=== PATIENT | female | born 1940 | race Caucasian/White ===

== ENCOUNTER 2020-01-03 03:25 | Observation (INO) ==
[2020-01-03] MEDS ORDERED: Naloxone 0.4 MG/ML INJ IVP PRN ×2 (05:32→20:19)
[2020-01-03] MEDS ORDERED: Ondansetron 4 MG/2 ML VIAL IVP PRN ×2 (05:32→20:19)
[2020-01-03] MEDS ORDERED: *HR* Metoprolol 5 MG/5 ML VIAL IVP PRN (05:35)
[2020-01-03] MEDS: 0.9 % Sodium Chloride 1,000 ML IVC SCH ×2 (05:59→14:27)
[2020-01-03 06:27] LABS: Basophils # 0.1 K/mcL (0.0-0.2); Basophils % 0.5 %; Hematocrit 43.6 % (35.3-44.9); Hemoglobin 13.5 g/dL (11.5-15.4); Immature Granulocytes % 0.6 % (0-4); Lymphocytes % 7.5 %; Mean Corpuscular Hemoglobin 28.8 pg (28.0-33.3); Mean Platelet Volume 10.4 fL (9.4-12.4); Monocytes # 0.6 K/mcL (0.0-1.3); Monocytes % 4.3 %; Neutrophils # 11.9 K/mcL (1.6-8.9); Platelet Count 324 K/mcL (140-400); Red Blood Count 4.69 M/mcL (3.82-4.97); Segmented Neutrophils % 87.1 %; White Blood Count 13.7 K/mcL (4.3-11.1)
[2020-01-03 06:39] LABS: INR 2.7; Prothrombin Time 30.7 Seconds (9.4-12.1)
[2020-01-03 06:54] LABS: BUN/Creatinine Ratio 12 (6-26); Blood Urea Nitrogen 12 mg/dL (8-23); Calcium 8.9 mg/dL (8.6-10.3); Carbon Dioxide 23 mEq/L (23-29); Chloride 105 mEq/L (98-107); Glucose 188 mg/dL (70-105); Osmolality,Calculated 291 (280-300); Potassium 4.1 mEq/L (3.5-5.1); Sodium 138 mEq/L (136-145); eGFR For African Americans > 60 (> 60); eGFR For Non-African Americans 53 (> 60)
[2020-01-03] MEDS ORDERED: Psyllium 1 PACKET POWD.PACK PO SCH (09:00)
[2020-01-03 09:16] LABS: Bilirubin,Urine Negative (Negative); Blood,Urine Large (Negative); Clarity,Urine Clear (Clear); Color,Urine Orange (Yellow); Glucose,Urine (UA) 100 mg/dL (Normal); Ketones,Urine Trace mg/dL (Negative); Leukocyte Esterase,Urine Trace (Negative); Nitrite,Urine Positive (Negative); PH,Urine 6.5 pH Units (5.0-8.0); Protein,Urine 30 mg/dL (Neg-Trace); Specific Gravity,Urine > 1.030 (1.010-1.025); Urobilinogen,Urine Normal (Normal)
[2020-01-03 09:17] LABS: Hyaline Casts,Urine None Seen per lpf (None-Few); Squamous Epithelial Cell,Urine Many per lpf (None-Few)
[2020-01-03 09:27] LABS: RBC,Urine 15-30 per hpf (0-3); Renal Epithelial Cells,Urine Few per hpf (None-Few); Transitional Epi Cells,Urine Few per hpf (None-Few)
[2020-01-03 09:28] LABS: Bacteria,Urine Few per hpf (None-Few)
[2020-01-03] MEDS ORDERED: cefTRIAXone 1,000 MG in Water for inj. (sterile) 10 ML IVP SCH (16:00)
[2020-01-03] MEDS ORDERED: *HR* Warfarin 5 MG TABLET PO ONE (16:44)
[2020-01-03] MEDS ORDERED: *HR* Meperidine 25 MG/ML SYRINGE IVP PRN (17:58)
[2020-01-03] MEDS ORDERED: *HR* FentaNYL (PF) 100 MCG/2 ML VIAL IVP PRN (17:58)
[2020-01-03] MEDS ORDERED: Ondansetron 4 MG/2 ML VIAL IVP ONE (17:58)
[2020-01-03] MEDS ORDERED: *HR* OxyCODONE Immed Rel 5 MG TABLET PO PRN (17:58)
[2020-01-03] MEDS ORDERED: Warfarin perPT PO PRN ×2 (18:00→20:19)
[2020-01-03] MEDS ORDERED: Lidocaine -MPF 2% 2 ML VIAL ONE (18:06)
[2020-01-03] MEDS ORDERED: Dexamethasone 4 MG/ML VIAL ONE (18:06)
[2020-01-03] MEDS ORDERED: *HR* FentaNYL (PF) 100 MCG/2 ML VIAL ONE (18:07)
[2020-01-03] MEDS ORDERED: *HR* Propofol 200 MG/20 ML VIAL IVP ONE (18:07)
[2020-01-03] MEDS ORDERED: Acetaminophen IV 1,000 MG/100 ML INFUS..BTL ONE (18:39)
[2020-01-03] MEDS ORDERED: *HR* Metoprolol 5 MG/5 ML VIAL IVP ONE (19:07)
[2020-01-03] MEDS: *HR* Metoprolol 5 MG/5 ML VIAL IVP PRN ×2 (19:39→19:53)
[2020-01-03] MEDS ORDERED: 0.9 % Sodium Chloride 1,000 ML IVC SCH (20:19)
[2020-01-03] MEDS: Psyllium 1 PACKET POWD.PACK PO SCH (20:32)
[2020-01-04 03:55] LABS: Basophils % 0.2 %; Hematocrit 41.2 % (35.3-44.9); Hemoglobin 12.9 g/dL (11.5-15.4); Immature Granulocytes % 0.4 % (0-4); Lymphocytes # 1.1 K/mcL (0.6-4.6); Mean Corpuscular HGB Conc 31.3 g/dL (31.6-35.5); Mean Corpuscular Hemoglobin 28.9 pg (28.0-33.3); Mean Corpuscular Volume 92.2 fL (83.0-100.0); Mean Platelet Volume 10.4 fL (9.4-12.4); Monocytes # 0.3 K/mcL (0.0-1.3); Monocytes % 3.2 %; Neutrophils # 8.6 K/mcL (1.6-8.9); Platelet Count 326 K/mcL (140-400); Red Blood Count 4.47 M/mcL (3.82-4.97); Red Cell Distribution Width 14.4 % (11.5-14.5); Segmented Neutrophils % 85.2 %; White Blood Count 10.1 K/mcL (4.3-11.1)
[2020-01-04 04:01] LABS: INR 3.7; Prothrombin Time 42.5 Seconds (9.4-12.1)
[2020-01-04 04:13] LABS: BUN/Creatinine Ratio 13 (6-26); Blood Urea Nitrogen 12 mg/dL (8-23); Calcium 8.6 mg/dL (8.6-10.3); Carbon Dioxide 24 mEq/L (23-29); Chloride 107 mEq/L (98-107); Glucose 162 mg/dL (70-105); Magnesium 1.8 mg/dL (1.6-2.6); Osmolality,Calculated 285 (280-300); Phosphorous 2.8 mg/dL (2.7-4.5); Sodium 136 mEq/L (136-145); eGFR For African Americans > 60 (> 60); eGFR For Non-African Americans 56 (> 60)
[2020-01-04] MEDS: Psyllium 1 PACKET POWD.PACK PO SCH (07:56)
[2020-01-04] MEDS ORDERED: cefTRIAXone 1,000 MG in Water for inj. (sterile) 10 ML IVP SCH (09:00)
[2020-01-04] MEDS ORDERED: Aspirin Enteric Coated 81 MG Tablet PO SCH ×2 (09:00)
[2020-01-04 10:47] VITALS: BP 151/77
[2020-01-04] MEDS ORDERED: *HR* Warfarin 2.5 MG TABLET PO SCH ×2 (18:00)
[2020-01-06] MEDS ORDERED: *HR* Warfarin 5 MG TABLET PO SCH ×2 (18:00)
== END 2020-01-04 13:57 | disposition home or self-care (01) ==
LOC: 3BNU → SUATTDRO 04:21
PROVIDERS: ADMIT Family Medicine; ATTEND Internal Medicine